=== PATIENT | female | born 2000 | race Caucasian/White ===

== ENCOUNTER 2021-05-21 10:10 | Outpatient (CLI) | payer OTHER ==
[2021-05-21 12:11] VITALS: BP 128/76; PULSE 92; RESP 16; TEMP 98
--- NOTE | 2021-05-21 19:47 | P.MSEPDOC ---
Presenting Problems - Arrival Data Date of Arrival on Unit: 05/21/21 Time of Arrival on Unit: 10:10 Mode of Transport: Ambulatory - Complaint OB-Reason for Admission/Chief Complaint: Decreased Movement, Pain Comment: Low abd "cramping" & "sharp" since last evening. Decreased movement since 0800. Medical History - Information : 1 Para: 0 - Gestational Age Gestational Age by SADI (wks/days): 25 Weeks and 0 Days Review of Systems - Review of Systems Constitutional: No problems Breast: No problems ENT: No problems Cardiovascular: No problems Respiratory: No problems Gastrointestinal: No problems Genitourinary: No problems Musculoskeletal: No problems Neurological: No problems Skin: No problems Vital Signs - Temperature Temperature: 98 F Temperature Source: Temporal Artery Scan - Pulse Right Sitting Brachial Pulse Rate: 92 Pulse Assessment Method: Automatic Cuff - Respirations Respiratory Rate: 16 Oxygen Delivery Method: Room Air O2 Sat by Pulse Oximetry: 99 - Blood Pressure Right Arm Sitting Blood Pressure: 128/76 Blood Pressure Mean: 93 Blood Pressure Source: Automatic Cuff Medical Screen Scoring - Cervical Exam Dilation (cm): 1 Effacement (%): 0 Membranes: Intact - Assessment - Baby A Baseline FHR: 150 Physician Notification - Physician Notified Physician Notified Date: 05/21/21 Physician Notified Time: 10:59 Physician: Damari Carey - Notification Comment Comment: Spk c\\Dr. Carey, advsd , 25 04/10, FHT appropriate for Gest Age. Reviewed pts. concerns of bilaternal lower abd discomfort, sharp in nature, when walking and rolling. over in bed, improved c\\rest. Reviewed SVE. States to send FFN, if negative, D/C home. Call if + Maternal Triage Index - Maternal Triage Index Presenting for scheduled procedure w/no complaint: No - Stat/Priority 1 Stat Priority 1: No - Urgent/Priority 2 Urgent Priority 2: Yes Provider Notified: Damari Carey Provider Notified Time: 10:59 Criteria Met for Priority 2: Decreased movement Disposition - Disposition OB Disposition: Discharge to home, Written follow up instructions reviewed Discharge Date: 05/21/21 Discharge Time: 12:00 I agree with the RN Medical Screening Exam: Yes Case reviewed; plan agreed upon as documented in EMR&OBIX.: Yes Diagnosis: DECREASED MOVEMENTS, SECOND TRIMESTER, UNSP
== END 2021-05-21 12:00 | disposition home or self-care (01) ==
LOC: FBPOP 10:10
PROVIDERS: ATTEND Obstetrics & Gynecology
DX: O36.8120 Decreased fetal movements, second trimester, not applicable or unspecified (principal); Z3A.25 25 weeks gestation of pregnancy
CPT/HCPCS: 82731; 99213

== ENCOUNTER 2021-08-22 23:58 | Outpatient (CLI) | payer OTHER ==
[2021-08-23 00:17] VITALS: PULSE 82; RESP 17; TEMP 97.8
--- NOTE | 2021-08-23 07:12 | P.MSEPDOC ---
Presenting Problems - Arrival Data Date of Arrival on Unit: 08/23/21 Time of Arrival on Unit: 23:58 Mode of Transport: Ambulatory - Complaint OB-Reason for Admission/Chief Complaint: Possible Onset of Labor Comment: Patient states she has been feeling contractions since 1700 08/22/21 Medical History - Information : 1 Para: 0 - Gestational Age Gestational Age by SADI (wks/days): 38 Weeks and 3 Days Review of Systems - Review of Systems Constitutional: No problems Breast: No problems ENT: No problems Cardiovascular: No problems Respiratory: No problems Gastrointestinal: No problems Genitourinary: No problems Musculoskeletal: No problems Neurological: No problems Skin: No problems Vital Signs - Temperature Temperature: 97.8 F Temperature Source: Oral - Pulse Pulse Oximetery Pulse Rate: 82 - Respirations Respiratory Rate: 17 Oxygen Delivery Method: Room Air Medical Screen Scoring - Cervical Exam Dilation (cm): 4 Membranes: Intact - Assessment - Baby A Heart Rate - NICHD Category: Category I (Normal) Disposition - Disposition OB Disposition: Triage Discharge Date: 08/23/21 Discharge Time: 01:30 I agree with the RN Medical Screening Exam: Yes Case reviewed; plan agreed upon as documented in EMR&OBIX.: Yes Diagnosis: FALSE LABOR AT OR AFTER 37 COMPLETED WEEKS OF GESTATION
== END 2021-08-23 01:30 | disposition home or self-care (01) ==
LOC: FBPOP 23:58
PROVIDERS: ATTEND Obstetrics & Gynecology
DX: O47.1 False labor at or after 37 completed weeks of gestation (principal); Z3A.38 38 weeks gestation of pregnancy
CPT/HCPCS: 59025; 99213

== ENCOUNTER 2021-08-27 10:57 | Inpatient (IN) | payer OTHER ==
--- NOTE | 2021-08-27 17:56 | P.HPOB ---
History of Present Illness H&P Date: 08/27/21 Chief Complaint: Advanced cervical dilation This is a 21-year-old female 1 para 0 with an estimated date of confinement of 09/03/2021, estimated gestational age of 39-0/7 weeks, who presented to labor and delivery with complaints of contractions occurring approximately every 12 minutes persistently over the last few days. She is found to be 5-1/2-6 cm in the office and was previously 5 cm approximately 4 days ago in triage. She does live an hour and a half away and is concerned about making into the hospital on time. She states her contractions are painful and they are happening. course has been complicated by contractions and dilation at 32 weeks. She was not given steroids. 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 She is not currently employed. Review of Systems Constitutional: Denies chills, Denies fever Eyes: denies blurred vision, denies pain Ears, nose, mouth and throat: Denies headache, Denies sore throat Cardiovascular: Denies chest pain, Denies shortness of breath Respiratory: Denies cough Gastrointestinal: Reports abdominal pain Genitourinary: Reports pelvic pain, Reports Musculoskeletal: Reports low back pain Integumentary: Denies pruritus, Denies rash Neurological: Denies numbness, Denies weakness Psychiatric: Denies anxiety, Denies depression Past Medical History Past Medical History: No Reported History History of Any Multi-Drug Resistant Organisms: None Reported Past Surgical History: No Surgical Hx Reported Past Anesthesia/Blood Transfusion Reactions: No Reported Reaction Past Psychological History: No Psychological Hx Reported Smoking Status: Never smoker Past Alcohol Use History: None Reported Past Drug Use History: None Reported - Past Family History Mother Family Medical History: Cancer (Breast), Hypertension Medications and Allergies Home Medications Medication Instructions Recorded Confirmed Type Pnv No.95/Ferrous Fum/Folic AC 1 tab PO DAILY 05/21/21 05/21/21 History [ Multivitamin Tablet] Allergies Allergy/AdvReac Type Severity Reaction Status Date / Time No Known Allergies Allergy Verified 08/23/21 00:07 Exam Osteopathic Statement: *. No significant issues noted on an osteopathic structural exam other than those noted in the History and Physical/Consult. HEENT: Within normal limits Heart: Regular rate and rhythm Lungs: Clear to auscultation bilaterally Abdomen: Cervix: 5-1/2-6 cm/70%/-1 station heart tones: Category 1 Contractions: Irregular Extremities: Negative Homans Assessment and Plan (1) 39 weeks gestation of Current Visit: Yes Status: Acute Code(s): Z3A.39 - 39 WEEKS GESTATION OF SNOMED Code(s): 10936827 Plan: Admission for early active labor. Artificial rupture membranes with oxytocin augmentation of labor expectant management. Epidural anesthesia if desired.
[2021-08-27] MEDS ORDERED: CARBOPROST TROMETHAMINE 250 MCG/ML 1 ML AMP IM PRN (17:57)
[2021-08-27] MEDS ORDERED: TERBUTALINE 1 MG/ML VIAL SQ PRN (17:57)
[2021-08-27] MEDS ORDERED: METHYLERGONOVINE 0.2 MG/ML 1 ML AMP IM PRN (17:57)
[2021-08-27] MEDS ORDERED: OXYTOCIN 10 UNIT/ML 1 ML VIAL IM PRN (17:57)
[2021-08-27] MEDS ORDERED: LIDOCAINE 0.5% (PF) 5 MG/ML (50 ML SDV) SQ PRN (17:57)
[2021-08-27] MEDS ORDERED: LIDOCAINE 1% (10MG/ML) FOR IV START INTRADERMA PRN (17:57)
[2021-08-27] MEDS ORDERED: OXYTOCIN 30 UNITS/500 ML NS 30 UNIT in SALINE 1 500ML.BAG IV SCH ×2 (18:00→21:22)
[2021-08-27] MEDS ORDERED: LACTATED RINGERS 1,000 ML IV SCH (18:00)
[2021-08-27 18:16] LABS: Basophils % (A) 0 %; Eosinophils # (A) 0.1 k/uL (0-0.7); Eosinophils % (A) 1 %; HCT 34.6 % (34.0-46.0); HGB 11.8 gm/dL (11.4-16.0); Lymphocytes # (A) 1.1 k/uL (1.0-4.8); Lymphocytes % (A) 17 %; MCH 30.8 pg (25.0-35.0); MCHC 34.1 g/dL (31.0-37.0); MCV 90.3 fL (80.0-100.0); Monocytes # (A) 0.3 k/uL (0-1.0); Monocytes % (A) 4 %; Neutrophils # (A) 4.6 k/uL (1.3-7.7); Neutrophils % (A) 76 %; Platelet Count 204 k/uL (150-450); RBC 3.83 m/uL (3.80-5.40); RDW 14.8 % (11.5-15.5); WBC 6.1 k/uL (3.8-10.6)
--- NOTE | 2021-08-27 21:07 | P.PROBDLV ---
Vaginal Delivery Note - . Vaginal Delivery Note: The patient progressed to complete dilation after oxytocin augmentation of labor and artificial rupture membranes with clear fluid noted. Did receive 1 dose of Stadol while in labor. Once reaching complete, she began pushing. Infant's head came to a crown. With one further push, the 's head delivered across the perineum followed by the anterior shoulder. Nose and mouth were bulb suctioned after delivery. was placed on mother's abdomen. Cord was c lamped and cut and infant was taken to warmer for evaluation. A viable male infant is noted with scores of 9 at 1 minute and 9 at 5 minutes and weight of 8 pounds. Placenta delivered shortly thereafter, intact, with a three-vessel cord. Uterus contracted fairly well after oxytocin was given and uterine massage was carried out. Several clots were also expressed. Inspection of the perineum revealed a second-degree perineal laceration with a partial third-degree extension. This area was anesthetized with 1% lidocaine and then sutured with 3-0 and 2-0 Vicryl suture in the usual multilayer fashion. Estimated blood loss is approximately 250 mL's. Both mother and infant are in stable condition.
[2021-08-27] MEDS ORDERED: ZOLPIDEM 5 MG TAB PO PRN (21:22)
[2021-08-27] MEDS ORDERED: BENZOCAINE/MENTHOL SPRAY 1 GM/SPRAY AEROSOL TOPICAL PRN (21:22)
[2021-08-27] MEDS ORDERED: diphenhydrAMINE 25 MG CAP PO PRN (21:22)
[2021-08-27] MEDS ORDERED: diphenhydrAMINE 50 MG CAP PO PRN (21:22)
[2021-08-27] MEDS ORDERED: diphenhydrAMINE 50 MG/ML 1 ML VIAL IVP PRN ×2 (21:22)
[2021-08-27] MEDS ORDERED: SIMETHICONE 80 MG CHEWABLE PO PRN (21:22)
[2021-08-27] MEDS ORDERED: HYDROCORTISONE 2.5% RECTAL CREAM 30 GM TUBE RECTAL PRN (21:22)
[2021-08-27] MEDS ORDERED: LANOLIN CREAM 5 GM TUBE TOPICAL PRN (21:22)
[2021-08-27 21:31] VITALS: RESP 16
[2021-08-27] MEDS: IBUPROFEN 600 MG TAB PO PRN (22:14)
[2021-08-27] MEDS: SENNOSIDES-DOCUSATE SODIUM 1 EACH TAB PO SCH (22:16)
[2021-08-28] MEDS ORDERED: Rhogam IMMUNE GLOBULIN 1,500 UNIT/1 ML IM ONE (01:54)
[2021-08-28] MEDS: IBUPROFEN 600 MG TAB PO PRN ×3 (05:32→20:36)
[2021-08-28 07:28] LABS: Basophils % (A) 0 %; Eosinophils % (A) 0 %; HCT 29.8 % (34.0-46.0); Lymphocytes # (A) 1.2 k/uL (1.0-4.8); Lymphocytes % (A) 11 %; MCH 30.2 pg (25.0-35.0); MCHC 33.3 g/dL (31.0-37.0); MCV 90.7 fL (80.0-100.0); Mean Platelet Volume 8.5; Monocytes # (A) 0.5 k/uL (0-1.0); Monocytes % (A) 4 %; Neutrophils # (A) 9.3 k/uL (1.3-7.7); Neutrophils % (A) 83 %; Platelet Count 216 k/uL (150-450); RBC 3.28 m/uL (3.80-5.40); RDW 14.8 % (11.5-15.5); WBC 11.2 k/uL (3.8-10.6)
[2021-08-28 07:32] LABS: HGB 9.9 gm/dL (11.4-16.0)
--- NOTE | 2021-08-28 08:41 | P.DS ---
Providers Date of admission: 08/27/21 10:57 Expected date of discharge: 08/28/21 Attending physician: Damari Carey Primary care physician: Stated None - Discharge Diagnosis(es) (1) 39 weeks gestation of Current Visit: Yes Status: Acute Hospital Course: This is a 21-year-old female 1 para 0 at 39-0/7 weeks who presents for oxytocin augmentation of labor and artificial rupture membranes due to advanced cervical dilation on 08/27/2021. She delivered a viable male infant on 08/27/2021 with scores of 9 at 1 minute and 9 at 5 minutes and infant weight of 8 pounds. Her course has been uncomplicated. Lochia is decreasing. Pain is well-controlled. Vital signs are stable. Abdomen is soft with fundus firm and nontender. Extremities negative Homans. Impression is status post vaginal delivery day #1. Plan is to discharge home tomorrow morning. Routine instructions are given. She is advised to follow up in the office in 6 weeks for a check. She will be given a prescription for ibuprofen. She also will need a prescription for a breast pump. She is advised to call the office if she has any further questions or concerns prior to the appointment time. Procedures: Oxytocin augmentation of labor Spontaneous vaginal delivery of a viable male infant on 08/27/2021 Patient Condition at Discharge: Stable Plan - Discharge Summary New Discharge Prescriptions: New Ibuprofen [Motrin] 600 mg PO Q6HR PRN #60 tab PRN Reason: Mild Pain (Scale 1 To 3) Continue Pnv No.95/Ferrous Fum/Folic AC [ Multivitamin Tablet] 1 tab PO DAILY Discharge Medication List Pnv No.95/Ferrous Fum/Folic AC [ Multivitamin Tablet] 1 tab PO DAILY 05/21/21 [History] Ibuprofen [Motrin] 600 mg PO Q6HR PRN #60 tab 08/28/21 [Rx] Follow up Appointment(s)/Referral(s): Damari Carey DO [Doctor of Osteopathic Medicine] - 6 Weeks Activity/Diet/Wound Care/Special Instructions: Instructions 1. Do not begin any exercise program for 3 weeks. 2. Do not resume sexual relations for 3 weeks or longer if uncomfortable. 3. You may take tub baths or showers at any time. 4. You may use tampons if desired after 3 weeks. 5. Keep the area of episiotomy (stitches) clean and dry. 6. If you are not nursing, wear a good fitting, supportive bra during the day and limit fluid intake for at least 1 week to prevent breast engorgement. 7. Call the office, [phone], within the next week to make appointment for your 6 week checkup if it has not already been made. 8. Report any of the following occurrences to the doctor promptly: a. Heavy, excessive bleeding b. Chills, fever c. Burning or frequency of urination d. Pain or redness and breasts if nursing e. Increasing pain or swelling in episiotomy (stitches). In addition to the above instructions, the following additional should be followed: 1. No heavy lifting or straining (exercising) until after 6 week checkup. 2. Keep abdominal incision clean and dry: You may wear a dressing if more comfortable. 3. Make office appointment for 10 days after going home or as instructed by her doctor. Discharge Disposition: HOME SELF-CARE
--- NOTE | 2021-08-28 08:43 | P.PNOBGVD ---
Subjective - Subjective Principal diagnosis: Status post vaginal delivery day #1 Interval history: Patient is doing okay today. Lochia has been decreasing. Her pain is well- controlled with ibuprofen. She is working on breast-feeding. Patient reports: Reports appetite normal, Reports voiding normally, Reports pain well controlled, Reports ambulating normally [place]: doing well, nursing well Objective - Latest Vital Signs Latest vital signs: Vital Signs Temp Pulse Resp BP Pulse Ox 08/28/21 04:00 98.6 F 84 16 123/75 98 08/28/21 01:00 98.8 F 80 16 113/62 08/27/21 23:15 16 109/63 08/27/21 22:45 89 18 109/67 08/27/21 22:15 84 18 101/64 08/27/21 22:00 89 16 98/62 08/27/21 21:45 91 16 96/64 08/27/21 21:30 85 18 108/59 08/27/21 21:15 96.8 F L 88 16 112/62 Intake and Output 08/27/21 08/28/21 08/28/21 22:59 06:59 14:59 Intake Total 167 Output Total 550 200 Balance -383 -200 Intake: Intake, IV Titration 167 Amount Oxytocin 30 Units/500 ml 167 Ns 30 unit In Saline 1 500ml.bag @ Per Protocol IV .Q0M [facility] Rx#:[id number] Output: Estimated Blood Loss 250 Output, Quantitative 300 200 Blood Loss Other: # Voids 1 Weight 241 kg - Exam Extremities: Present: normal. Absent: tenderness Abdomen: Present: normal appearance, soft. Absent: tenderness Uterus: Present: normal, firm. Absent: tenderness - Labs Labs: Abnormal Lab Results - Last 24 Hours (Table) 08/28/21 Range/Units 06:35 WBC 11.2 H (3.8-10.6) k/uL RBC 3.28 L (3.80-5.40) m/uL Hgb 9.9 L D (11.4-16.0) gm/dL Hct 29.8 L (34.0-46.0) % Neutrophils # 9.3 H (1.3-7.7) k/uL Assessment and Plan Assessment: Status post vaginal delivery day #1 (1) 39 weeks gestation of Current Visit: Yes Status: Acute Code(s): Z3A.39 - 39 WEEKS GESTATION OF SNOMED Code(s): 60900160 Plan: Continue with care today. Anticipate discharge home tomorrow.
[2021-08-28] MEDS: SENNOSIDES-DOCUSATE SODIUM 1 EACH TAB PO SCH ×2 (09:48→20:37)
[2021-08-28] MEDS: ACETAMINOPHEN TAB 325 MG TAB PO PRN (23:31)
[2021-08-29] MEDS: IBUPROFEN 600 MG TAB PO PRN ×2 (02:32→07:46)
[2021-08-29] MEDS: ACETAMINOPHEN TAB 325 MG TAB PO PRN ×2 (05:25→11:30)
[2021-08-29] MEDS: SENNOSIDES-DOCUSATE SODIUM 1 EACH TAB PO SCH (07:45)
[2021-08-29 14:40] VITALS: BP 97/59; PULSE 88; TEMP 98.4
== END 2021-08-29 13:10 | disposition home or self-care (01) | DRG 768 ==
LOC: 4FBP 10:57
PROVIDERS: ADMIT Obstetrics & Gynecology; ATTEND Obstetrics & Gynecology
PROC: 10E0XZZ Delivery of Products of Conception, External Approach (ICD-10-PCS; principal; 2021-08-27)
PROC: 0DQR0ZZ Repair Anal Sphincter, Open Approach (ICD-10-PCS; 2021-08-27)
PROC: 0KQM0ZZ Repair Perineum Muscle, Open Approach (ICD-10-PCS; 2021-08-27)
PROC: 3E033VJ Introduction of Other Hormone into Peripheral Vein, Percutaneous Approach (ICD-10-PCS; 2021-08-27)
PROC: 10907ZC Drainage of Amniotic Fluid, Therapeutic from Products of Conception, Via Natural or Artificial Opening (ICD-10-PCS; 2021-08-27)
PROC: 4A0HXCZ Measurement of Products of Conception, Cardiac Rate, External Approach (ICD-10-PCS; 2021-08-27)
DX: O70.20 Third degree perineal laceration during delivery, unspecified (principal); Z37.0 Single live birth; Z3A.39 39 weeks gestation of pregnancy
CPT/HCPCS: 85025; 85461; 86850; 86900; 86901

== ENCOUNTER 2022-02-26 11:21 | Emergency (ER) | payer OTHER ==
[2022-02-26 11:37] VITALS: TEMP 98
[2022-02-26 13:52] VITALS: RESP 18
[2022-02-26] MEDS ORDERED: SODIUM CHLORIDE 0.9% 1,000 ML IV STA (13:52)
--- NOTE | 2022-02-26 13:54 | ED ---
General Adult HPI - General Chief complaint: Abdominal Pain Stated complaint: Abd Pain Time Seen by Provider: 02/26/22 13:15 Source: patient Mode of arrival: ambulatory Limitations: no limitations - History of Present Illness Initial comments: Dictation was produced using [employer] dictation software. please excuse any grammatical, word or spelling errors. Chief Complaint:22 -year-old female presents with jaundice and right upper quadr ant abdominal pain History of Present Illness: Is a 22-year-old female she has no serial past medic al history. She has known history of gallstones for the last 1 month. She was seen at [place] emergency Department and had follow up with general surgeon. Her appointments for gallbladder removal was not until early March. Patient states she's had constant chronic right upper quadrant abdominal pain for the last month or so. Yesterday she noticed that her eyes and skin was turning yellow. Denies any fever, chills or night sweats. The ROS documented in this emergency department record has been reviewed and confirmed by me. Those systems with pertinent positive or negative responses have been documented in the HPI. All other systems are other negative and/or noncontributory. PHYSICAL EXAM: General Impression: Alert and oriented x3, not in acute distress, anicteric HEENT: Normocephalic atraumatic, extra-ocular movements intact, pupils equal and reactive to light bilaterally, mucous membranes moist. Cardiovascular: Heart regular rate and rhythm Chest: Able to complete full sentences, no retractions, no tachypnea Abdomen: abdomen soft, pain at right upper quadrant, positive Elam's sign, non-distended, no organomegaly Musculoskeletal: Pulses present and equal in all extremities, no peripheral edema Motor: no focal deficits noted Neurological: CN II-XII grossly intact, no focal motor or sensory deficits noted Skin: Intact with no visualized rashes Psych: Normal affect and mood ED course: 22-year-old female presents emergency Department with painful jaundice. She has known history of gallstones. All signs upon arrival are within acceptable limits. Chart review was performed Laboratory evaluation obtained. CBC, coag panel is unremarkable. Metabolic panel is unremarkable. Bilirubin is 5.8, elevated liver enzymes suggesting obstructive disease. Gallbladder ultrasound suggests choledocholithiasis and possible acute cholecystitis. Patient on antibiotics. Patient transferred to [facility]. Case discussed with Dr. Abraham who is willing to accept patients care for ER to ER transfer. Patient given a dose of Zosyn. Critical Care: no Critical Care time: n/a - Related Data Home Medications Medication Instructions Recorded Confirmed Pnv No.95/Ferrous Fum/Folic AC 1 tab PO DAILY 05/21/21 05/21/21 [ Multivitamin Tablet] Previous Rx's Medication Instructions Recorded Ibuprofen [Motrin] 600 mg PO Q6HR PRN #60 tab 08/28/21 Allergies Allergy/AdvReac Type Severity Reaction Status Date / Time No Known Allergies Allergy Verified 02/26/22 11:33 Review of Systems ROS Statement: Those systems with pertinent positive or pertinent negative responses have been documented in the HPI. ROS Other: All systems not noted in ROS Statement are negative. Past Medical History Past Medical History: No Reported History History of Any Multi-Drug Resistant Organisms: None Reported Past Surgical History: No Surgical Hx Reported Past Anesthesia/Blood Transfusion Reactions: No Reported Reaction Past Psychological History: No Psychological Hx Reported Smoking Status: Never smoker Past Alcohol Use History: None Reported Past Drug Use History: None Reported - Past Family History Mother Family Medical History: Cancer (Breast), Hypertension General Exam Limitations: no limitations Course Vital Signs 02/26/22 02/26/22 11:34 13:51 Temperature 98 F Pulse Rate 91 88 Respiratory 16 18 Rate Blood Pressure 142/88 127/70 O2 Sat by Pulse 98 99 Oximetry Medical Decision Making - Lab Data Result diagrams: 02/26/22 13:47 02/26/22 13:47 Lab Results 02/26/22 02/26/22 02/26/22 Range/Units 13:47 13:47 13:47 WBC 5.8 (3.8-10.6) k/uL RBC 4.83 (3.80-5.40) m/uL Hgb 13.8 (11.4-16.0) gm/dL Hct 40.7 (34.0-46.0) % MCV 84.2 (80.0-100.0) fL MCH 28.6 (25.0-35.0) pg MCHC 34.0 (31.0-37.0) g/dL RDW 13.4 (11.5-15.5) % Plt Count 319 (150-450) k/uL MPV 7.2 Neutrophils % 66 % Lymphocytes % 21 % Monocytes % 5 % Eosinophils % 6 % Basophils % 1 % Neutrophils # 3.8 (1.3-7.7) k/uL Lymphocytes # 1.2 (1.0-4.8) k/uL Monocytes # 0.3 (0-1.0) k/uL Eosinophils # 0.4 (0-0.7) k/uL Basophils # 0.0 (0-0.2) k/uL PT 10.4 (9.0-12.0) sec INR 0.9 (<1.2) APTT 24.4 (22.0-30.0) sec Sodium 140 (137-145) mmol/L Potassium 4.4 (3.5-5.1) mmol/L Chloride 106 (98-107) mmol/L Carbon Dioxide 20 L (22-30) mmol/L Anion Gap 14 mmol/L BUN 6 L (7-17) mg/dL Creatinine 0.60 (0.52-1.04) mg/dL Est GFR (CKD-EPI)AfAm >90 (>60 ml/min/1.73 sqM) Est GFR (CKD-EPI)NonAf >90 (>60 ml/min/1.73 sqM) Glucose 78 (74-99) mg/dL Calcium 9.3 (8.4-10.2) mg/dL Total Bilirubin 5.8 H (0.2-1.3) mg/dL Conjugated Bilirubin 2.7 H (0.0-0.3) mg/dL Unconjugated Bilirubin 1.2 H (0.0-1.1) mg/dL Delta Bilirubin 1.9 H (0.0-0.2) mg/dL AST 127 H (14-36) U/L ALT 313 H (4-34) U/L Alkaline Phosphatase 402 H (38-126) U/L Total Protein 8.0 (6.3-8.2) g/dL Albumin 4.7 (3.5-5.0) g/dL HCG, Quant <2.4 mIU/mL Disposition Clinical Impression: Choledocholithiasis, Obstructive jaundice Disposition: OTHER INSTITUTION NOT DEFINED Condition: Serious Referrals: April Jiménez MD [Primary Care Provider] - 1-2 days Time of Disposition: 15:34 - Out of Hospital Transfer - Req. Specs Out of Hospital Transfer - Requested Specifics: Other Emergency Center ([facility])
[2022-02-26 14:01] LABS: INR 0.9 (<1.2); Partial Thromboplastin Time 24.4 sec (22.0-30.0); Prothrombin Time 10.4 sec (9.0-12.0)
[2022-02-26 14:07] LABS: Carbon Dioxide 20 mmol/L (22-30); Chloride 106 mmol/L (98-107); Glucose 78 mg/dL (74-99); Potassium 4.4 mmol/L (3.5-5.1); Sodium 140 mmol/L (137-145)
[2022-02-26 14:08] LABS: ALT 313 U/L (4-34); AST 127 U/L (14-36); African American GFR (CKD) >90 (>60 ml/min/1.73 sqM); Albumin 4.7 g/dL (3.5-5.0); Alkaline Phosphatase 402 U/L (38-126); Anion Gap 14 mmol/L; Bilirubin, Conjugated 2.7 mg/dL (0.0-0.3); Bilirubin, Delta 1.9 mg/dL (0.0-0.2); Bilirubin,Unconjugated 1.2 mg/dL (0.0-1.1); Blood Urea Nitrogen 6 mg/dL (7-17); Calcium 9.3 mg/dL (8.4-10.2); Non-African American GFR(CKD) >90 (>60 ml/min/1.73 sqM); Total Bilirubin 5.8 mg/dL (0.2-1.3)
[2022-02-26 14:16] LABS: Basophils % (A) 1 %; Eosinophils # (A) 0.4 k/uL (0-0.7); Eosinophils % (A) 6 %; HCT 40.7 % (34.0-46.0); HGB 13.8 gm/dL (11.4-16.0); Lymphocytes # (A) 1.2 k/uL (1.0-4.8); Lymphocytes % (A) 21 %; MCH 28.6 pg (25.0-35.0); MCV 84.2 fL (80.0-100.0); Mean Platelet Volume 7.2; Monocytes # (A) 0.3 k/uL (0-1.0); Monocytes % (A) 5 %; Neutrophils # (A) 3.8 k/uL (1.3-7.7); Neutrophils % (A) 66 %; Platelet Count 319 k/uL (150-450); RBC 4.83 m/uL (3.80-5.40); RDW 13.4 % (11.5-15.5); WBC 5.8 k/uL (3.8-10.6)
[2022-02-26 14:24] LABS: HCG,Quantitative Serum <2.4 mIU/mL
--- NOTE | 2022-02-26 15:02 | US ---
EXAMINATION TYPE: US gallbladder DATE OF EXAM: 02/26/2022 COMPARISON: NONE CLINICAL HISTORY: jaundice, ruq abd pain. RUQ pain, vomiting, history of gallstones TECHNIQUE: Multiple sonographic images of the right upper quadrant are obtained. FINDINGS: EXAM MEASUREMENTS: Liver Length: 15.2 cm Gallbladder Wall: 0.4 cm CBD: 0.8 cm Right Kidney: 11.3 x 4.5 x 4.5 cm Pancreas: Obscured by bowel gas Liver: appears wnl Gallbladder: multiple small stones Evidence for sonographic Elam's sign: yes CBD: dilated Right Kidney: no evidence of hydronephrosis IMPRESSION: Cholelithiasis with a positive sonographic Elam's sign and dilated gallbladder correlate for acute cholecystitis.
[2022-02-26] MEDS ORDERED: PIPERACILLIN-TAZOBACTAM 3.375 GM in SODIUM CHLORIDE 0.9% 100 ML IVPB STA (15:19)
[2022-02-26 17:29] VITALS: BP 115/68; PULSE 76
== END 2022-02-26 17:40 | disposition other institution (70) ==
LOC: EC 11:21
DX: K80.51 Calculus of bile duct without cholangitis or cholecystitis with obstruction (principal)
CPT/HCPCS: 99285; 96365; 96361 ×2; 36415; 80053; 82248; 85025; 85610; 85730; 84702; 76705; J2543

== ENCOUNTER 2023-06-03 00:16 | Outpatient (CLI) | payer OTHER ==
[2023-06-03 01:14] VITALS: BP 122/75; PULSE 89; RESP 16; TEMP 96.4
--- NOTE | 2023-07-01 10:53 | P.MSEPDOC ---
Presenting Problems - Arrival Data Date of Arrival on Unit: 06/03/23 Time of Arrival on Unit: 00:16 Mode of Transport: Ambulatory - Complaint OB-Reason for Admission/Chief Complaint: Rule Out PROM Comment: pt. present to triage to rule out SROM around 2100 Medical History - Information : 2 Para: 1 Term: 1 : 0 Abortions: Spontaneous or Elective: 0 Number of Living Children: 1 - Gestational Age Gestational Age by SADI (wks/days): 34 Weeks and 4 Days Review of Systems - Review of Systems Constitutional: No problems Breast: No problems ENT: No problems Cardiovascular: No problems Respiratory: No problems Gastrointestinal: No problems Genitourinary: No problems Musculoskeletal: No problems Neurological: No problems Skin: No problems Vital Signs - Temperature Temperature: 96.4 F Temperature Source: Temporal Artery Scan - Pulse Pulse Oximetery Pulse Rate: 89 Pulse Assessment Method: Automatic Cuff - Respirations Respiratory Rate: 16 Oxygen Delivery Method: Room Air O2 Sat by Pulse Oximetry: 100 - Blood Pressure Right Arm Blood Pressure: 122/75 Blood Pressure Mean: 90 Blood Pressure Source: Automatic Cuff Medical Screen Scoring - Cervical Exam Membranes: Intact - Assessment - Baby A Baseline FHR: 120 Heart Rate - NICHD Category: Category I (Normal) NST: Reactive Physician Notification - Physician Notified Physician Notified Date: 06/03/23 Physician Notified Time: 00:45 Physician: Fam Balderas New Order Received: Yes - Notification Comment Comment: orders to discharge pt. home Maternal Triage Index - Stat/Priority 1 Stat Priority 1: No - Urgent/Priority 2 Urgent Priority 2: Yes Provider Notified: Fam Balderas Provider Notified Time: 00:45 Criteria Met for Priority 2: amnisure negative, pt. denies contractions just vaginal pressure, thick white discharge on external vag exam. Reactive NST no contractions traced. orders to discharge pt. home Disposition - Disposition OB Disposition: Discharge to home Discharge Date: 06/03/23 Discharge Time: 00:53 I agree with the RN Medical Screening Exam: Yes Physician's MSE Comment: I have neither seen nor examined the patient. Case reviewed; plan agreed upon as documented in EMR&OBIX.: Yes Diagnosis: RELATED CONDITIONS, UNSPECIFIED, THIRD TRIMESTER
== END 2023-06-03 00:53 | disposition home or self-care (01) ==
LOC: FBPOP 00:16
PROVIDERS: ATTEND Obstetrics & Gynecology
DX: O47.03 False labor before 37 completed weeks of gestation, third trimester (principal); Z3A.34 34 weeks gestation of pregnancy
CPT/HCPCS: 59025; 84112; G0463; 99213

== ENCOUNTER 2023-07-07 05:49 | Inpatient (IN) | payer OTHER ==
[2023-07-07] MEDS ORDERED: CARBOPROST TROMETHAMINE 250 MCG/ML 1 ML AMP IM PRN (06:14)
[2023-07-07] MEDS ORDERED: TRANEXAMIC 1,000 MG/100ML-NACL 1,000 MG in EMPTY BAG 1 BAG IV PRN (06:14)
[2023-07-07] MEDS ORDERED: OXYTOCIN 10 UNIT/ML 1 ML VIAL IM PRN (06:14)
[2023-07-07] MEDS ORDERED: METHYLERGONOVINE 0.2 MG/ML 1 ML AMP IM PRN (06:14)
[2023-07-07] MEDS ORDERED: TERBUTALINE 1 MG/ML VIAL SQ PRN (06:14)
[2023-07-07] MEDS ORDERED: miSOPROStoL 200 MCG TAB PO PRN (06:14)
[2023-07-07 06:42] LABS: Basophils % (A) 0 %; Eosinophils # (A) 0.1 k/uL (0-0.7); Eosinophils % (A) 2 %; HCT 35.2 % (34.0-46.0); HGB 11.8 gm/dL (11.4-16.0); Lymphocytes # (A) 1.7 k/uL (1.0-4.8); Lymphocytes % (A) 23 %; MCH 30.6 pg (25.0-35.0); MCHC 33.5 g/dL (31.0-37.0); MCV 91.3 fL (80.0-100.0); Mean Platelet Volume 8.1; Monocytes # (A) 0.4 k/uL (0-1.0); Monocytes % (A) 5 %; Neutrophils # (A) 5.1 k/uL (1.3-7.7); Neutrophils % (A) 69 %; Platelet Count 177 k/uL (150-450); RBC 3.86 m/uL (3.80-5.40); RDW 14.5 % (11.5-15.5); WBC 7.4 k/uL (3.8-10.6)
[2023-07-07] MEDS: LACTATED RINGERS 1,000 ML IV SCH (06:56)
[2023-07-07] MEDS: OXYTOCIN 30 UNITS/500 ML NS 30 UNIT in SALINE 1 500ML.BAG IV SCH (06:56)
[2023-07-07] MEDS ORDERED: NALBUPHINE 10 MG/ML (10 ML MDV) IV PRN (09:10)
--- NOTE | 2023-07-07 09:10 | P.HPOB ---
History of Present Illness H&P Date: 07/07/23 Chief Complaint: IUP at 39-3/7 weeks, advanced cervical dilation. This is a 23-year-old G2, P1 at 39-2/7 weeks that presents to labor and delivery for induction of labor secondary to advanced cervical dilation. Patient was seen in the office yesterday noted to be 4 to 5 cm. Patient was counseled on options and elected induction of labor. Patient has been receiving routine care with myself which has been essentially uncomplicated. Patient notes good movement denies contractions vaginal bleeding or loss of fluid. On blood work this patient is a blood type of O-, rubella status immune, hepatitis B surface engine negative, HIV negative, RPR is nonreactive, grew beta strep culture was negative. Review of Systems Constitutional: Denies chills, Denies fatigue, Denies fever Ears, nose, mouth and throat: Denies headache Cardiovascular: Reports leg edema Respiratory: Denies dyspnea Gastrointestinal: Denies constipation, Denies diarrhea, Denies nausea, Denies vomiting Genitourinary: Reports Past Medical History Past Medical History: No Reported History History of Any Multi-Drug Resistant Organisms: None Reported Past Surgical History: Cholecystectomy Past Anesthesia/Blood Transfusion Reactions: No Reported Reaction Past Psychological History: No Psychological Hx Reported Smoking Status: Never smoker Past Alcohol Use History: None Reported Past Drug Use History: None Reported - Past Family History Mother Family Medical History: Cancer, Hypertension Father Family Medical History: No Reported History Medications and Allergies Home Medications Medication Instructions Recorded Confirmed Type Pnv No.95/Ferrous Fum/Folic AC 1 tab PO DAILY 05/21/21 07/07/23 History [ Multivitamin Tablet] Allergies Allergy/AdvReac Type Severity Reaction Status Date / Time No Known Allergies Allergy Verified 06/03/23 00:26 Exam Osteopathic Statement: *. No significant issues noted on an osteopathic structural exam other than those noted in the History and Physical/Consult. Vital Signs Temp Pulse Resp BP Pulse Ox 07/07/23 07:12 96.6 F L 82 16 118/80 98 Intake and Output 07/06/23 07/07/23 07/07/23 22:59 06:59 14:59 Other: Weight 113.398 kg 113.398 kg Targeted physical exam is performed this date General is well-nourished well- developed female in no acute distress, breathing is noted to nonlabored, heart has a regular rate and rhythm, abdomen is gravid and appropriate for gestational age, on cervical exam she is 5/70/-2 station amniotomy was performed and clear fluid was obtained. heart tones are noted to be category 1 and she is ge every 3 to 4 minutes. Results Result Diagrams: 07/07/23 06:27 Assessment and Plan (1) Term Current Visit: Yes Status: Acute Code(s): Z34.90 - ENCNTR FOR SUPRVSN OF NORMAL , UNSP, UNSP TRIMESTER SNOMED Code(s): 73939417 Plan: 23-year-old G2, P1 at 39-2/7 weeks presents for induction of labor. Patient is admitted to labor and delivery and Pitocin induction of labor has begun per hospital protocol. Options for analgesia are discussed including N ubain/nitrous/epidural. Patient will consider. Anticipate spontaneous vaginal delivery this morning.
[2023-07-07] MEDS: LIDOCAINE 0.5% (PF) 5 MG/ML (50 ML SDV) SQ PRN (11:35)
[2023-07-07] MEDS ORDERED: LANOLIN CREAM 1 GM TUBE TOPICAL PRN (11:52)
[2023-07-07] MEDS ORDERED: diphenhydrAMINE 50 MG CAP PO PRN (11:52)
[2023-07-07] MEDS ORDERED: diphenhydrAMINE 50 MG/ML 1 ML VIAL IVP PRN ×2 (11:52)
[2023-07-07] MEDS ORDERED: SIMETHICONE 80 MG CHEWABLE PO PRN (11:52)
[2023-07-07] MEDS ORDERED: ZOLPIDEM 5 MG TAB PO PRN (11:52)
[2023-07-07] MEDS ORDERED: diphenhydrAMINE 25 MG CAP PO PRN (11:52)
[2023-07-07] MEDS ORDERED: HYDROCORTISONE 2.5% RECTAL CREAM 30 GM TUBE RECTAL PRN (11:52)
--- NOTE | 2023-07-07 11:57 | P.PROBDLV ---
Vaginal Delivery Note - . Vaginal Delivery Note: Findings: Viable male infant delivered at 1128, weight of 9 pounds 2.4 ounces, Apgars of 9 and 9 at 1 and 5 minutes respectively. 23-year-old G2, P1 at 39-2/7 weeks presented to labor and delivery for scheduled induction of labor secondary to advanced cervical dilation. Patient was admitted and Pitocin induction of labor was begun. Patient underwent amniotomy. Patient did become uncomfortable and request nitrous. With nitrous patient progressed from 8 cm to complete dilation. Once patient was noted to be completely dilated she began pushing. With excellent maternal effort she brought the down to a presentation. Patient delivered the head followed by the anterior/posterior shoulder and body. Spontaneous cry was appreciated. After 2-minute delay the umbilical cord was doubly clamped and cut. Large gush of blood was appreciated, red rubber catheter was used to drain the bladder of clear yellow urine. Uterus firmed with fundal stage. Placenta was delivered spontaneously intact with a three-vessel cord being noted. Inspection of the patient's vaginal vault revealed a second-degree vaginal laceration. This was repaired in the usual fashion with 3-0 Rapide after instillation of lidocaine. Uterus was noted be firm below the umbilicus. Estimated blood loss 200 cc All counts were noted correct x 2. Patient and tolerated delivery well and are resting comfortably.
[2023-07-07] MEDS: BENZOCAINE/MENTHOL SPRAY 1 GM/SPRAY AEROSOL TOPICAL PRN (12:06)
[2023-07-07] MEDS: ACETAMINOPHEN TAB 325 MG TAB PO PRN (12:17)
[2023-07-07] MEDS: IBUPROFEN 600 MG TAB PO SCH (15:50)
[2023-07-07] MEDS: SENNOSIDES-DOCUSATE SODIUM 1 EACH TAB PO SCH (19:35)
[2023-07-07] MEDS ORDERED: SENNA LEAF EXTRACT SYRUP 528 MG/15 ML CUP PO SCH (20:00)
[2023-07-07] MEDS: Rhogam IMMUNE GLOBULIN 1,500 UNIT/1 ML IM ONE (21:53)
[2023-07-08 07:38] LABS: Basophils % (A) 0 %; Eosinophils % (A) 1 %; HCT 28.9 % (34.0-46.0); Lymphocytes % (A) 22 %; MCH 30.8 pg (25.0-35.0); MCHC 33.3 g/dL (31.0-37.0); MCV 92.4 fL (80.0-100.0); Mean Platelet Volume 8.8; Monocytes % (A) 4 %; Neutrophils % (A) 71 %; Platelet Count 159 k/uL (150-450); RBC 3.13 m/uL (3.80-5.40); RDW 14.9 % (11.5-15.5)
[2023-07-08 07:39] LABS: Eosinophils # (A) 0.1 k/uL (0-0.7); Lymphocytes # (A) 1.7 k/uL (1.0-4.8); Monocytes # (A) 0.3 k/uL (0-1.0); Neutrophils # (A) 5.7 k/uL (1.3-7.7)
[2023-07-08 07:42] LABS: HGB 9.6 gm/dL (11.4-16.0)
--- NOTE | 2023-07-08 09:30 | P.PNOBGVD ---
Subjective - Subjective Principal diagnosis: day #1 Interval history: Patient is doing well, she is ambulating and voiding without difficulty. States her lochia is moderate. Infant is in the nursery for an episode of bradycardia while sleeping. Patient states the 's resting heart rate was in the 90s. She is pumping. She states her pain is well-controlled. Patient reports: Reports appetite normal, Reports voiding normally, Reports pain well controlled, Reports ambulating normally : doing well (In special care nursery awaiting echo) Objective - Latest Vital Signs Latest vital signs: Vital Signs Temp Pulse Resp BP Pulse Ox 07/08/23 00:00 98.4 F 95 16 112/76 98 07/07/23 20:00 98.4 F 108 H 16 116/76 97 07/07/23 15:49 98.0 F 98 16 99/66 99 07/07/23 13:49 85 16 108/66 100 07/07/23 13:34 89 16 110/67 100 07/07/23 13:19 97.5 F L 79 16 102/54 100 07/07/23 13:04 71 16 110/67 100 07/07/23 12:49 97.4 F L 75 16 111/64 100 07/07/23 12:34 82 16 115/58 100 07/07/23 12:19 97.6 F 69 16 111/65 100 07/07/23 12:04 80 16 108/67 100 07/07/23 11:49 71 16 110/60 100 Intake and Output 07/07/23 07/08/23 07/08/23 22:59 06:59 14:59 Other: # Voids 0 3 - Exam Extremities: Present: normal, edema Abdomen: Present: normal appearance, soft Uterus: Present: normal, firm - Labs Labs: Abnormal Lab Results - Last 24 Hours (Table) 07/08/23 Range/Units 06:34 RBC 3.13 L (3.80-5.40) m/uL Hgb 9.6 L D (11.4-16.0) gm/dL Hct 28.9 L (34.0-46.0) % Assessment and Plan (1) Term Current Visit: Yes Status: Acute Code(s): Z34.90 - ENCNTR FOR SUPRVSN OF NO RMAL , UNSP, UNSP TRIMESTER SNOMED Code(s): 17418634 (2) Status post vaginal delivery Current Visit: Yes Status: Acute Code(s): REI6582 - SNOMED Code(s): 754413256 (3) Obstetrical laceration, second degree Current Visit: Yes Status: Acute Code(s): O70.1 - SECOND DEGREE PERINEAL LACERATION DURING DELIVERY SNOMED Code(s): 6354061 Plan: Patient is doing well . Continue routine care.
[2023-07-08] MEDS: PRENATAL VIT-IRON-FOLIC ACID 1 EACH TABLET PO SCH (18:32)
[2023-07-09 01:21] VITALS: RESP 14
--- NOTE | 2023-07-09 09:25 | P.DS ---
Providers Date of admission: 07/07/23 05:49 Expected date of discharge: 07/09/23 Attending physician: Ksenia Jauregui Primary care physician: April Jiménez - Discharge Diagnosis(es) (1) Term Current Visit: Yes Status: Acute (2) Status post vaginal delivery Current Visit: Yes Status: Acute (3) Obstetrical laceration, second degree Current Visit: Yes Status: Acute Hospital Course: This is a 23-year-old 2 now para 2 that presented to labor and delivery on 07/06 sore scheduled induction of labor secondary to advanced cervical dilation. Patient was admitted and Pitocin induction of labor was begun patient underwent amniotomy and clear fluid was obtained. Patient progressed to complete began pushing and had a normal spontaneous vaginal delivery of a viable male infant at 1128, weight of 9 pounds 2.4 ounces, Apgars of 9 and 9 at 1 and 5 minutes respectively. Patient did sustain a second-degree midline laceration during delivery which was repaired in the usual fashion with 3-0 Rapide. Patient's course has been uneventful. On this day #2 she is ambulating and voiding without difficulty. She is tolerating a regular diet without nausea or vomiting. Her pain is well-controlled. She desires discharge home. Patient Condition at Discharge: Good Plan - Discharge Summary New Discharge Prescriptions: No Action Pnv No.95/Ferrous Fum/Folic AC [ Multivitamin Tablet] 1 tab PO DAILY Discharge Medication List Pnv No.95/Ferrous Fum/Folic AC [ Multivitamin Tablet] 1 tab PO DAILY 05/21/21 [History] Follow up Appointment(s)/Referral(s): Ksenia Jauregui DO [Doctor of Osteopathic Medicine] - 6 Weeks Patient Instructions/Handouts: Vaginal Delivery (DC), Vaginal Delivery (GEN) Activity/Diet/Wound Care/Special Instructions: No intercourse, tampons or douching. No heavy lifting greater than a gallon of milk. No driving for two weeks. Call with any fever, shakes or chills, with any pain not alleviated by over the counter meds, or with any quesions or concerns. Discharge Disposition: HOME SELF-CARE
[2023-07-09 09:34] VITALS: BP 112/80; PULSE 80; TEMP 98.4
== END 2023-07-09 15:05 | disposition home or self-care (01) | DRG 560 ==
LOC: 4FBP 05:49
PROVIDERS: ADMIT Obstetrics & Gynecology Obstetrics; ATTEND Obstetrics & Gynecology Obstetrics
PROC: 10907ZC Drainage of Amniotic Fluid, Therapeutic from Products of Conception, Via Natural or Artificial Opening (ICD-10-PCS; principal; 2023-07-07)
PROC: 3E033VJ Introduction of Other Hormone into Peripheral Vein, Percutaneous Approach (ICD-10-PCS; principal; 2023-07-07)
PROC: 0KQM0ZZ Repair Perineum Muscle, Open Approach (ICD-10-PCS; principal; 2023-07-07)
PROC: 10E0XZZ Delivery of Products of Conception, External Approach (ICD-10-PCS; principal; 2023-07-07)
DX: O70.1 Second degree perineal laceration during delivery (principal); Z3A.39 39 weeks gestation of pregnancy; Z37.0 Single live birth
CPT/HCPCS: 85025; 85461; 86850; 86900; 86901

== ENCOUNTER 2024-09-21 15:28 | Outpatient (CLI) | payer OTHER ==
[2024-09-21 16:06] VITALS: BP 135/75; PULSE 103; RESP 18; TEMP 97
--- NOTE | 2024-10-12 13:31 | P.MSEPDOC ---
Presenting Problems - Arrival Data Date of Arrival on Unit: 09/21/24 Time of Arrival on Unit: 15:28 Mode of Transport: Ambulatory - Complaint OB-Reason for Admission/Chief Complaint: Pain Comment: cervical pain/pressure Medical History - Information : 3 Para: 2 Term: 2 : 0 Abortions: Spontaneous or Elective: 0 Number of Living Children: 2 - Gestational Age Gestational Age by SADI (wks/days): 34 Weeks and 0 Days Review of Systems - Review of Systems Constitutional: No problems Breast: No problems ENT: No problems Cardiovascular: No problems Respiratory: No problems Gastrointestinal: No problems Genitourinary: No problems Musculoskeletal: No problems Neurological: No problems Skin: No problems Vital Signs - Temperature Temperature: 97.0 F Temperature Source: Temporal Artery Scan - Pulse Right Sitting Brachial Pulse Rate: 103 Pulse Assessment Method: Automatic Cuff - Respirations Respiratory Rate: 18 Oxygen Delivery Method: Room Air O2 Sat by Pulse Oximetry: 100 - Blood Pressure Right Arm Sitting Blood Pressure: 135/75 Blood Pressure Mean: 95 Blood Pressure Source: Automatic Cuff Medical Screen Scoring - Cervical Exam Dilation (cm): 3.5 Effacement (%): 50 Station: -3 Membranes: Intact - Uterine Contractions Resting: Soft to palpation - Assessment - Baby A Baseline FHR: 125 Heart Rate - NICHD Category: Category I (Normal) NST: Reactive Physician Notification - Physician Notified Physician Notified Date: 09/21/24 Physician Notified Time: 16:00 Physician: Gretta Cheung Order Received: Yes (dc home) Maternal Triage Index - Maternal Triage Index Presenting for scheduled procedure w/no complaint: No - Stat/Priority 1 Stat Priority 1: No - Urgent/Priority 2 Urgent Priority 2: No - Prompt/Priority 3 Prompt Priority 3: No - Non-Urgent/Priority 4 Non-Urgent Priority 4: Yes Criteria Met for Priority 4: pelvic pressure. no change in cervical exam from office visit 09/18/2024 Disposition - Disposition OB Disposition: Discharge to home, Written follow up instructions reviewed Discharge Date: 09/21/24 Discharge Time: 16:06 I agree with the RN Medical Screening Exam: Yes Physician's MSE Comment: I have neither seen nor examined the patient Case reviewed; plan agreed upon as documented in EMR&OBIX.: Yes Diagnosis: MATERNAL CARE FOR PROBLEM, UNSP, THIRD * DO NOT USE *
== END 2024-09-21 16:06 | disposition home or self-care (01) ==
LOC: FBPOP 15:28
PROVIDERS: ATTEND Obstetrics & Gynecology
DX: O35.9XX0 Maternal care for (suspected) fetal abnormality and damage, unspecified, not applicable or unspecified (principal); Z3A.34 34 weeks gestation of pregnancy
CPT/HCPCS: 59025; G0463; 99213

== ENCOUNTER → 2024-10-08 | Outpatient (CLI) | payer OTHER ==
--- NOTE | 2024-10-08 16:27 | US ---
EXAMINATION TYPE: US venous doppler duplex LE LT DATE OF EXAM: 10/08/2024 4:14 PM COMPARISON: NONE CLINICAL INDICATION: Female, 24 years old with history of M79.662 Pain L Leg; Pain x 1 day. No hx of DVT. Patient does not take blood thinners. TECHNIQUE: The lower extremity deep venous system is examined utilizing real time linear array sonog marina with graded compression, color doppler sonography, and spectral doppler. SIDE PERFORMED: Left FINDINGS: VESSELS IMAGED: Common Femoral Vein Deep Femoral Vein Greater Saphenous Vein * Femoral Vein Popliteal Vein Small Saphenous Vein * Proximal Calf Veins (* superficial vessels) Left Leg: Grayscale color Doppler imaging demonstrate normal color Doppler flow and spectral venous w aveforms. *Peroneal veins were not visualized. No evidence of DVT in veins imaged. IMPRESSION: No evidence for deep vein thrombosis. [facility], , 10/08/2024 4:24 PM
== END | disposition home or self-care (01) ==
LOC: RADUSWWP 15:54
PROVIDERS: ATTEND Obstetrics & Gynecology Obstetrics
DX: M79.662 Pain in left lower leg (principal)

== ENCOUNTER 2024-10-15 16:06 | Inpatient (IN) | payer OTHER ==
[2024-10-15 18:33] VITALS: RESP 16
[2024-10-16] MEDS ORDERED: TRANEXAMIC 1,000 MG/100ML-NACL 1,000 MG in EMPTY BAG 1 BAG IV PRN (08:29)
[2024-10-16] MEDS ORDERED: OXYTOCIN 10 UNIT/ML 1 ML VIAL IM PRN (08:29)
[2024-10-16] MEDS ORDERED: LIDOCAINE 0.5% (PF) 5 MG/ML (50 ML SDV) SQ PRN (08:29)
[2024-10-16] MEDS ORDERED: TERBUTALINE 1 MG/ML VIAL SQ PRN (08:29)
[2024-10-16] MEDS ORDERED: METHYLERGONOVINE 0.2 MG/ML 1 ML AMP IM PRN (08:29)
[2024-10-16] MEDS ORDERED: CARBOPROST TROMETHAMINE 250 MCG/ML 1 ML AMP IM PRN (08:29)
[2024-10-16] MEDS: LACTATED RINGERS 1,000 ML IV SCH (09:00)
[2024-10-16 09:03] LABS: Basophils # (A) 0.02 10*3/uL (0.00-0.10); Basophils % (A) 0.3 %; Eosinophils # (A) 0.11 10*3/uL (0.04-0.35); Eosinophils % (A) 1.8 %; HCT 32.7 % (37.2-46.3); HGB 11.2 g/dL (12.0-15.0); Lymphocytes # (A) 1.30 10*3/uL (0.90-5.00); Lymphocytes % (A) 21.6 %; MCH 30.8 pg (27.0-32.0); MCHC 34.3 g/dL (32.0-37.0); MCV 89.8 fL (80.0-97.0); Monocytes # (A) 0.34 10*3/uL (0.20-1.00); Monocytes % (A) 5.6 %; Neutrophils # (A) 4.20 10*3/uL (1.80-7.70); Neutrophils % (A) 69.7 %; Platelet Count 158 10*3/uL (140-440); RBC 3.64 10*6/uL (4.10-5.20); RDW 14.8 % (11.5-14.5); WBC 6.03 10*3/uL (4.50-10.00)
[2024-10-16] MEDS: OXYTOCIN 30 UNITS/500 ML NS 30 UNIT in SALINE 1 500ML.BAG IV SCH (09:45)
[2024-10-16] MEDS ORDERED: SIMETHICONE 80 MG CHEWABLE PO PRN (14:13)
[2024-10-16] MEDS ORDERED: LANOLIN CREAM 1 GM TUBE TOPICAL PRN (14:13)
[2024-10-16] MEDS ORDERED: diphenhydrAMINE 25 MG CAP PO PRN (14:13)
[2024-10-16] MEDS ORDERED: ZOLPIDEM 5 MG TAB PO PRN (14:13)
[2024-10-16] MEDS ORDERED: BENZOCAINE/MENTHOL SPRAY 1 GM/SPRAY AEROSOL TOPICAL PRN (14:13)
[2024-10-16] MEDS ORDERED: diphenhydrAMINE 50 MG/ML 1 ML VIAL IVP PRN ×2 (14:13)
[2024-10-16] MEDS ORDERED: HYDROCORTISONE 2.5% RECTAL CREAM 30 GM TUBE RECTAL PRN (14:13)
--- NOTE | 2024-10-16 14:18 | P.HPOB ---
History of Present Illness H&P Date: 10/16/24 Chief Complaint: IUP at 37-4/7 weeks, advanced cervical dilation, labor This is a 24-year-old -0-0-2 that presented to labor and delivery yesterday with complaints of regular painful contractions. Patient was noted to be 37-4/7 weeks, estimated due date of 11/02 based on good dating parameters. Patient was noted to be 4 to 5 cm in the office last week and when she noted contractions she came in to be evaluated in OB triage. Patient lives over an hour away from the hospital and was concerned given regular painful contractions. Patient has been receiving routine care which is been essentially uncomplicated. Patient was noted to have a small amount change through the night and was observed. This morning patient was noted to be 6+ centimeters and uncomfortable with contractions. On blood work this patient is blood type of O+, rubella status immune, hepatitis B surface engine negative, HIV negative, RPR nonreactive, beta strep culture negative. Review of Systems Constitutional: Denies chills, Denies fatigue, Denies fever Ears, nose, mouth and throat: Denies headache Cardiovascular: Reports leg edema Respiratory: Denies dyspnea Gastrointestinal: Denies nausea, Denies vomiting Genitourinary: Reports Past Medical History Past Medical History: No Reported History History of Any Multi-Drug Resistant Organisms: None Reported Past Surgical History: Cholecystectomy Past Anesthesia/Blood Transfusion Reactions: No Reported Reaction Past Psychological History: No Psychological Hx Reported Smoking Status: Never smoker Past Alcohol Use History: None Reported Past Drug Use History: None Reported - Past Family History Mother Family Medical History: Cancer, Hypertension Father Family Medical History: No Reported History Medications and Allergies Home Medications Medication Instructions Recorded Confirmed Type Pnv No.95/Ferrous Fum/Folic AC 1 tab PO DAILY 05/21/21 10/15/24 History [ Multivitamin Tablet] Allergies Allergy/AdvReac Type Severity Reaction Status Date / Time No Known Allergies Allergy Verified 10/15/24 16:22 Exam Osteopathic Statement: *. No significant issues noted on an osteopathic structural exam other than those noted in the History and Physical/Consult. Vital Signs Temp Pulse Resp BP Pulse Ox 10/15/24 18:00 97.7 F 104 H 16 119/74 98 10/15/24 17:36 97.7 F 104 H 16 119/74 98 Intake and Output 07/14/25 07/15/25 07/15/25 22:59 06:59 14:59 Other: Weight 108.862 kg Targeted physical exam is performed this date General Is well-nourished well- developed female in moderate distress, patient is breathing with contractions, abdomen is noted to be gravid appropriate for gestational age, on cervical exam she is 6+ centimeters 80% effaced at -2 station, amniotomy is performed and copious clear fluid is obtained. heart tones are noted to be category 1 Results Result Diagrams: 10/16/24 08:47 Abnormal Lab Results - Last 24 Hours (Table) 10/16/24 Range/Units 08:47 RBC 3.64 L (4.10-5.20) 10*6/uL Hgb 11.2 L (12.0-15.0) g/dL Hct 32.7 L (37.2-46.3) % Immature Gran # 0.06 H (0.00-0.04) 10*3/uL Assessment and Plan (1) Term Current Visit: Yes Status: Acute Code(s): Z34.90 - ENCNTR FOR SUPRVSN OF NORMAL , UNSP, UNSP TRIMESTER SNOMED Code(s): 63713530 (2) Active labor Current Visit: Yes Status: Acute Code(s): DVR3288 - SNOMED Code(s): 148768242 Plan: 24-year-old G3, P2 at 37-4/7 weeks with noted cervical change, active labor. Patient is admitted to labor and delivery. Patient declines analgesia but will consider nitrous. Anticipate spontaneous vaginal delivery
--- NOTE | 2024-10-16 14:19 | P.PROBDLV ---
Vaginal Delivery Note - . Vaginal Delivery Note: Date of service 10/16/2024 Findings: Viable male infant delivered at 1356, weight of 7 pounds 5 ounces, Apgars of 9 and 9 at 1 and 5 minutes respectively 24-year-old G3, P2 at 37 4 admitted to labor and delivery on 714 for observation as early labor was suspected. Patient made change through the night and was noted to be 6 cm this morning. Patient underwent amniotomy and clear fluid was obtained. A small amount Pitocin was used to augment labor. Patient progressed quickly to complete dilation and began pushing and had a normal spontaneous vaginal delivery of a viable male infant at 1353, weight of 7 pounds 5 ounces, Apgars of 9 and 9 at 1 and 5 minutes respectively. After 2-minute delay the umbilical cord was doubly clamped and cut. Spontaneous cry was noted at . The placenta was delivered spontaneously intact with a three-vessel cord being noted. On inspection the patient's vaginal vault no lacerations were appreciated. All counts were noted be correct x 2. Patient and infant tolerated delivery well and are resting comfortably.
[2024-10-16] MEDS: IBUPROFEN 800 MG TAB PO SCH (16:00)
[2024-10-16] MEDS: SENNOSIDES-DOCUSATE SODIUM 1 EACH TAB PO SCH (19:41)
[2024-10-17 00:02] VITALS: PULSE 78
[2024-10-17] MEDS: ACETAMINOPHEN TAB 500 MG TAB PO PRN (04:48)
--- NOTE | 2024-10-17 08:29 | P.DS ---
Providers Date of admission: 10/16/24 08:33 Expected date of discharge: 10/17/24 Attending physician: Ksenia Jauregui Primary care physician: Stated None - Discharge Diagnosis(es) (1) Term Current Visit: Yes Status: Acute (2) Active labor Current Visit: Yes Status: Acute (3) Status post vaginal delivery Current Visit: No Status: Acute Hospital Course: 24-year-old 3 now para 3-0-0-3 that presented to labor and delivery on 10/15 with complaints of erratic painful contractions. Patient was observed through the night noted to make cervical change therefore was admitted to labor and delivery at 6+ centimeters. Patient underwent amniotomy clear fluid was obtained. Contractions did space and Pitocin augmentation of labor was begun. Patient made quick progress toward complete dilation and began pushing. Patient had a normal spontaneous vaginal delivery of a viable male at 1356, weight of 7 pounds 5 ounces, Apgars of 9 and 9 at 1 and 5 minutes respectively. Patient was inadvertently marked as oh positive and cord blood was not taken therefore will need to be drawn . Patient's course has been uneventful. And is day #1 she is ambulating and voiding without difficulty. She is tolerating a regular diet without nausea or vomiting. She states her pain is well-controlled. Her lochia is minimal. She denies concerns and would like discharge home at 24 hours Patient Condition at Discharge: Good Plan - Discharge Summary New Discharge Prescriptions: No Action Pnv No.95/Ferrous Fum/Folic AC [ Multivitamin Tablet] 1 tab PO DAILY Discharge Medication List Pnv No.95/Ferrous Fum/Folic AC [ Multivitamin Tablet] 1 tab PO DAILY 05/21/21 [History] Follow up Appointment(s)/Referral(s): Ksenia Jauregui DO [Doctor of Osteopathic Medicine] - 6 Weeks Patient Instructions/Handouts: Vaginal Delivery (GEN), Vaginal Delivery (DC) Activity/Diet/Wound Care/Special Instructions: No tub baths or intercourse until 6 weeks . Bmez-ywt-evcryde ibuprofen 600 mg or 3 tablets every 6 hours as needed for pain. Routine check at 6 weeks. Should she have any concerns prior to this appointment she is urged to call the office to be seen prior Discharge Disposition: HOME SELF-CARE
[2024-10-17 09:14] VITALS: BP 115/69; TEMP 98.2
[2024-10-17] MEDS: Rhogam IMMUNE GLOBULIN 1,500 UNIT/1 ML IM ONE (15:35)
== END 2024-10-17 15:42 | disposition home or self-care (01) | DRG 560 ==
LOC: FBPOP 16:06 → 4FBP 17:36 → OBSVTOIN 10-16 08:33
PROVIDERS: ADMIT Obstetrics & Gynecology Obstetrics; ATTEND Obstetrics & Gynecology Obstetrics
PROC: 10E0XZZ Delivery of Products of Conception, External Approach (ICD-10-PCS; principal; 2024-10-16)
PROC: 10907ZC Drainage of Amniotic Fluid, Therapeutic from Products of Conception, Via Natural or Artificial Opening (ICD-10-PCS; 2024-10-16)
DX: O80 Encounter for full-term uncomplicated delivery (principal); Z37.0 Single live birth; Z3A.37 37 weeks gestation of pregnancy; Z82.49 Family history of ischemic heart disease and other diseases of the circulatory system
CPT/HCPCS: 59025; 85025; 85461; 86850; 86900; 86901; 99213